=== PATIENT | female | born 1950 | race Caucasian/White ===

== ENCOUNTER 2023-12-21 06:15 | Day surgery (SDC) | payer OTHER, SELFPAY ==
[2023-12-18 09:01] LABS: Urine Albumin Negative (Neg - Trace); Urine Bilirubin Negative (Negative); Urine Character Clear (Clear); Urine Color Yellow; Urine Glucose Negative (Negative); Urine Ketone Negative (Negative); Urine Leukocyte 2+ (Negative); Urine Nitrite Negative (Negative); Urine Occult Blood Negative (Negative); Urine Urobilinogen Negative (Neg - 1+); Urine pH 6.5 (5.0-9.0)
[2023-12-18 09:04] LABS: % Basophils 0.7 % (0-2); % Eosinophils 4.9 % (0-6); % Immature Granulocytes 0.5 % (0-0.5); % Lymphocytes 39.2 % (20.5-51.1); % Monocytes 10.2 % (1.7-9.3); % Neutrophils 44.5 % (42.2-75.2); Absolute Eosinophils 0.2 10^3/uL (0-0.7); Absolute Lymphocytes 1.6 10^3/uL (1.2-3.4); Absolute Monocytes 0.4 10^3/uL (0.1-0.6); Absolute Neutrophils 1.8 10^3/uL (1.4-6.5); Hematocrit 40.1 % (37.0-47.0); Hemoglobin 12.9 g/dL (12.0-16.0); Mean Corp Hgb Conc. 32.2 g/dL (33.0-37.0); Mean Corpuscular Hgb 29.3 pg (27.0-31.0); Mean Corpuscular Volume 91.1 fL (81.0-99.0); Mean Platelet Volume 10.7 fL (7.4-10.4); Nucleated Red Blood Cells % 0 %; Platelet Count 215 10^3/uL (130-400); Red Cell Dist. Width 13.7 % (11.5-14.5); White Blood Cell Count 4.1 10^3/uL (4.8-10.8)
[2023-12-18 09:13] LABS: Urine Bacteria Moderate (Negative); Urine Red Blood Cell 0-2 /HPF (0-2)
[2023-12-18 09:14] LABS: Urine Hyaline Cast 0-2 /LPF (0-2)
[2023-12-18 09:28] LABS: INR 0.99; PT 12.9 Sec (11.4-14.6)
[2023-12-18 09:30] LABS: APTT 25.1 Sec (23.4-35.0)
[2023-12-18 09:32] LABS: Chloride 99 mmol/L (98-107); Potassium 3.8 mmol/L (3.5-5.1); Sodium 139 mmol/L (135-145)
[2023-12-18 09:48] LABS: Blood Urea Nitrogen 15 mg/dl (7-17); Calcium 8.7 mg/dl (8.4-10.2); Carbon Dioxide 30 mmol/L (22-30); Glucose 91 mg/dl (70-99); eGFR > 60.00
[2023-12-18 14:19] VITALS: BMI 27.9
[2023-12-21 06:22] VITALS: BP 126/62; BMI 27.9
[2023-12-21] MEDS: NORMOSOL-R 1000 IV (06:36)
[2023-12-21 07:06] LABS: Urine Albumin Trace (Neg - Trace); Urine Bilirubin Negative (Negative); Urine Character Clear (Clear); Urine Color Yellow; Urine Glucose Negative (Negative); Urine Ketone Trace (Negative); Urine Leukocyte Trace (Negative); Urine Nitrite Negative (Negative); Urine Occult Blood Negative (Negative); Urine Urobilinogen 1+ (Neg - 1+)
[2023-12-21 07:57] LABS: Urine Amorphous Seen; Urine Mucus Many; Urine Squamous Cell 0-2 /LPF (Few)
[2023-12-21 07:58] LABS: Urine Bacteria Few (Negative); Urine Red Blood Cell 0-2 /HPF (0-2)
[2023-12-21 08:16] VITALS: BP 112/52
[2023-12-21 08:30] VITALS: BP 117/58
[2023-12-21 08:45] VITALS: BP 116/66
[2023-12-21 09:00] VITALS: BP 116/68
== END 2023-12-21 09:10 | disposition home or self-care (01) ==
LOC: SDS 06:15
PROVIDERS: ATTENDING PHYSICIAN Urology; FAMILY PHYSICIAN Family Medicine
DX: N39.41 Urge incontinence (principal); R15.9 Full incontinence of feces
CPT/HCPCS: 64590; 64581; 95972; 36415; 72170; 76000; 80048; 81003; 81015; 85025; 85610; 85730; 87086; C1767; C1778; C1787; L8681

== ENCOUNTER → 2024-02-24 10:24 | Outpatient (REF) | payer OTHER, SELFPAY | LOC: RAD 10:24 | PROVIDERS: ATTENDING PHYSICIAN Physician Assistant; FAMILY PHYSICIAN Family Medicine | DX: M81.0 Age-related osteoporosis without current pathological fracture (principal) | CPT/HCPCS: 72072; 72100; 73560; 73565 ==

== ENCOUNTER → 2024-03-04 15:14 | Outpatient (REF) | payer OTHER, SELFPAY | LOC: RCS 15:14 | PROVIDERS: ATTENDING PHYSICIAN Internal Medicine Critical Care Medicine; FAMILY PHYSICIAN Family Medicine | DX: J44.9 Chronic obstructive pulmonary disease, unspecified (principal) | CPT/HCPCS: 93005 ==

== ENCOUNTER → 2024-03-09 12:26 | Outpatient (REF) | payer OTHER, SELFPAY | LOC: RAD 12:26 | PROVIDERS: ATTENDING PHYSICIAN Internal Medicine Critical Care Medicine | DX: J44.9 Chronic obstructive pulmonary disease, unspecified (principal) | CPT/HCPCS: 71046 ==

== ENCOUNTER 2024-04-05 09:00 | Outpatient (RCR) | payer OTHER, SELFPAY | END 2024-04-05 23:59 | disposition home or self-care (01) | LOC: PURB 09:00 | PROVIDERS: ATTENDING PHYSICIAN Internal Medicine Critical Care Medicine; FAMILY PHYSICIAN Family Medicine | DX: J44.9 Chronic obstructive pulmonary disease, unspecified (principal) | CPT/HCPCS: G0237 ==

== ENCOUNTER 2024-05-10 09:30 | Outpatient (RCR) | payer OTHER, SELFPAY | END 2024-05-10 23:59 | disposition home or self-care (01) | LOC: PURB 09:30 | PROVIDERS: ATTENDING PHYSICIAN Internal Medicine Critical Care Medicine; FAMILY PHYSICIAN Family Medicine | DX: J44.9 Chronic obstructive pulmonary disease, unspecified (principal); Z87.891 Personal history of nicotine dependence | CPT/HCPCS: G0239 ==

== ENCOUNTER 2024-05-12 10:16 | Emergency (ER) | payer OTHER, SELFPAY ==
[2024-05-12 10:17] VITALS: BP 161/91
[2024-05-12 11:00] VITALS: BP 116/63
[2024-05-12 11:12] VITALS: BMI 30.5
[2024-05-12 11:41] LABS: ALT (SGPT) 28 U/L (0-35); AST (SGOT) 23 U/L (14-36); Albumin 3.9 g/dl (3.5-5.0); Alkaline Phosphatase 79 U/L (38-126); Blood Urea Nitrogen 24 mg/dl (7-17); Carbon Dioxide 29 mmol/L (22-30); Chloride 103 mmol/L (98-107); Estimated Creatinine Clearance 74 ml/min; Glucose 96 mg/dl (70-99); Potassium 3.4 mmol/L (3.5-5.1); Sodium 138 mmol/L (135-145); Total Bilirubin 0.6 mg/dl (0.2-1.3); Total Protein 6.3 g/dl (6.3-8.2); eGFR > 60.00
[2024-05-12 11:51] LABS: % Basophils 0.4 % (0-2); % Eosinophils 1.3 % (0-6); % Immature Granulocytes 0.3 % (0-0.5); % Lymphocytes 21.4 % (20.5-51.1); % Monocytes 8.8 % (1.7-9.3); % Neutrophils 67.8 % (42.2-75.2); Absolute Eosinophils 0.1 10^3/uL (0-0.7); Absolute Lymphocytes 1.5 10^3/uL (1.2-3.4); Absolute Monocytes 0.6 10^3/uL (0.1-0.6); Absolute Neutrophils 4.8 10^3/uL (1.4-6.5); Hematocrit 37.4 % (37.0-47.0); Hemoglobin 12.6 g/dL (12.0-16.0); Mean Corp Hgb Conc. 33.7 g/dL (33.0-37.0); Mean Corpuscular Hgb 29.8 pg (27.0-31.0); Mean Corpuscular Volume 88.4 fL (81.0-99.0); Mean Platelet Volume 10.6 fL (7.4-10.4); Nucleated Red Blood Cells % 0 %; Platelet Count 195 10^3/uL (130-400); Red Blood Cell Count 4.23 10^6/uL (4.20-5.40); Red Cell Dist. Width 14.3 % (11.5-14.5); White Blood Cell Count 7.1 10^3/uL (4.8-10.8)
[2024-05-12 12:00] VITALS: BP 114/64
--- NOTE | 2024-05-12 12:38 | ED.GENMED ---
History of Present Illness
General
Chief Complaint: Chest Pain
Source: patient, records and family
Exam Limitations: none
Time Seen by Provider: 05/12/24 10:54
Nursing documentation reviewed up to this point in time: agreed with
History of Present Illness
History of Present Illness:
Patient is a 73-year-old female who presents to the emergency department after feeling like her heart rate was racing this morning. Patient checked her watch at send tachycardia possibly A-fib. Patient did feel lightheaded and off balance.
Patient felt intermittent tightness/pain across her upper abdomen around to the back. Patient states that when she takes deep breath it increases the pain. Patient denies fever or chills. Patient does admit to a nonproductive cough. Patient
states she has had this intermittently in the past few months. Patient typically becomes lightheaded. Patient does feel increased shortness of breath. Patient states her skin and hair have changed. Patient is losing her hair. Weight has stayed
the same. Patient denies any injuries or illnesses.
Past History
Past History
ED Past Medical History: HTN, Psychiatric and Other (Diverticulitis )
ED Past Surgical History: Bowel resection (Sigmoid colon resection January 2010 ) and Other; Negative Cardiac
Social History
Tobacco: Smoker
Alcohol: None
Drug: None
Personal:
Living: with family
Employment: Retired
Family History
Family History: Hypertension
Review of Systems
Review of Systems
All Other Systems: ROS reviewed and negative except as documented in HPI and ROS
Constitutional: Reports weight loss and fatigue; Denies fever or chills
EENT: Reports no symptoms
Respiratory: Reports cough
Cardiac: Reports chest pain and palpitations; Denies diaphoresis or syncope
ABD/GI: Reports abdominal pain; Denies nausea, vomiting, diarrhea, constipated, bloody stools or black stools
: Reports no symptoms
Musculoskeletal: Reports no symptoms
Skin: Reports no symptoms
Neurological: Reports no symptoms
Hematologic/Lymphatic: Reports no symptoms
Phy Exam
Physical Exam
Physical Exam:
Physical Exam
General: No apparent distress, alert and appropriate, well nourished, well hydrated
HENT: Normocephalic, supple with no lymphadenopathy, no thyromegaly
Eyes: Clear sclera, conjuctiva without injection
Heart: Regular rhythm with occasional ectopy and rate. No S3, S4. No murmur. No NVD
Lungs: No respiratory distress, no stridor, lung sounds clear and equal bilaterally, chest wall symmetrical and nontender
Abdomen: Soft, nontender, no organomegaly, no CVA tenderness, BS good
Neuro: Alert and oriented x 3, CN II - XII intact, no motor focality, no cerebellar dysfunction
Skin: no rash
Psychiatric: well kept. interactive and cooperative
Extremities: No edema, cyanosis, tenderness, Good and equal peripheral pulses.
Scores
[id number] Score for Afib Stroke Risk
Age in Years (65=0, 65-74=1, >/=75=2): 65-74
Sex (Female=+1): Female
Congestive Heart Failure History (Yes=+1): No
Hypertension History (Yes=+1): Yes
Stroke/TIA/Thromboembolism History (Yes=+2): No
Vascular Disease History (Yes=+1): No
Diabetes Mellitus (Yes=+1): No
Score: 3
Anticoagulation Recommendations: Recommend anticoagulation (as validated in nonvalvular fib)
Heart Failure Risk
Heart Failure Risk Score: Not Applicable
Heart Score for Chest Pain Patients
STEMI patient?: Not applicable
Withdrawal Assessment of Alcohol
Withdrawal Assessment Completed?: Not applicable
Course
Orders/Labs/Results
Orders:
Orders
05/12/24 10:20
EKG [Electrocardiogram (*1)] Urgent
Reason for Study: Chest Pain
EKG- Treatment ONCE
05/12/24 11:13
IV Insert/Care/Rem.- Treatment PRN
05/12/24 11:17
Complete Blood Count/With Diff Urgent
Comprehensive Metabolic Panel Urgent
TSH Urgent
Comment: ADD ON
05/12/24 12:37
Add On- LAB Urgent
Tests Added?: TSH
Abnormal Lab Results
05/12/24
11:17
MPV 10.6 H fL
(7.4-10.4)
Potassium 3.4 L mmol/L
(3.5-5.1)
BUN 24 H mg/dl
(7-17)
05/12/24 11:17
05/12/24 11:17
Vital Signs
Initial and Last Documented VS:
Initial Vital Signs
Temp Pulse Resp BP Pulse Ox
98.2 F 86 18 161/91 95
05/12/24 10:17 05/12/24 10:17 05/12/24 10:17 05/12/24 10:17 05/12/24 10:17
Last Documented Vital Signs
Temp Pulse Resp BP Pulse Ox
98.2 F 69 18 124/77 95
05/12/24 10:17 05/12/24 14:00 05/12/24 14:00 05/12/24 14:00 05/12/24 14:00
*Radiology
Radiology exam reviewed: other (na)
*Pulse Oximetry
Patient hypoxic: no
*EKG
Interpreted by ED Provider?: Yes
EKG Intrepretation Date: 05/12/24
EKG Intrepretation Time: 12:51
Interpretation: abnormal
Comparison EKG: no changes
Heart Rate: 71
Rate: normal
Rhythm: sinus and PAC's
Loop: normal axis
Interval: normal interval
QRS Pattern: normal QRS
Ischemia: non-specific ST changes
*[employer] Interpretation
Rate: normal
Interpretation: abnormal
Heart Rate: 66
Rhythm: sinus and PAC's
*Critical Care Note
Total Time (30-74mins, 75-104mins- exclusive of procedures): Not Applicable
Update Note
Update Note:
Patient's workup is unremarkable. Patient referred to cardiology. Patient will probably need a Holter, echo and possible stress test and follow-up. Given the patient's respiratory issues we will not use a beta-glenna. Additionally would be good
define the etiology or what the exact rhythm is.
ED Attending Note
-
Portions of this chart may have been created with voice recognition software.� Occasional wrong word or��sound alike� substitutions may have occurred due to the inherent limitations of voice recognition software.
Discharge Plan
Departure
Patient Disposition: Home (Routine Discharge)
Date of Disposition: 05/12/24
Time of Disposition: 14:23
Patient with high blood pressure during this ER visit?: Yes
Condition: Good
Covid-19: Not Applicable
Discharge Problem:
Palpitations
Instructions: Palpitations ED, BLOOD PRESSURE
Prescriptions:
No Action
fluticasone propionate 1 SPRAY spray,suspension
1 spray intranasal PRN PRN (Reason: ALLERGIES)
cetirizine [Zyrtec] 10 mg Tablet
10 mg PO DAILY PRN (Reason: ALLERGIES)
sertraline 100 mg Tablet
100 mg PO DAILY
omeprazole 40 mg Capsule,Delayed Release(Dr/Ec)
40 mg PO DAILY
tramadol 50 mg Tablet
50 mg PO TID PRN (Reason: PAIN)
acetaminophen 500 mg Tablet
500 - 1,000 mg PO Q6H PRN (Reason: PAIN)
Benefiber (guar gum) Packet
2 tbsp PO DAILY
hydrochlorothiazide 25 mg Tablet
25 mg PO DAILY
estradiol [Estrace] 0.01 % (0.1 mg/gram) Cream
1 g VAGINAL .TWICEWEEKLY
albuterol sulfate [ProAir HFA] 90 mcg/actuation Hfa Aerosol Inhaler
1 inh INHALATION Q8H PRN (Reason: COPD)
ezetimibe [Zetia] 10 mg Tablet
10 mg PO HS
rosuvastatin 40 mg Tablet
40 mg PO HS
varenicline 1 mg Tablet
1 mg PO DAILY
Breztri Aerosphere 160-9-4.8 mcg/actuation Hfa Aerosol Inhaler
2 inh INHALATION BID
Gemtesa 75 mg Tablet
75 mg PO DAILY
lorazepam 1 MG tablet
1 mg PO BID PRN (Reason: ANXIETY)
sulfamethoxazole-trimethoprim
1 tab PO BID
Referrals:
Pola Chavez MD [Family Provider] -
Jose R Paz MD [Active] - Call in 1-3 days for appt
Activity Restrictions/Additional Instructions:
Continue present medications and therapy. Follow-up with the referral and your primary care physician. Return if any problems.
Interventions
Interventions:
*Risk Screen - Suicide Last Done: 05/12/24 10:17
*General Assessment Last Done: 05/12/24 10:17
*Neglect/Abuse Screening Last Done: 05/12/24 10:17
*ED COVID-19 Vaccine History Last Done: 05/12/24 10:17
ED- Cardiac Assessment Last Done: 05/12/24 11:40
Discharge Date and Time
Print Language: [id number]
[2024-05-12 12:48] VITALS: BP 143/65
[2024-05-12 13:00] VITALS: BP 123/63
[2024-05-12 14:00] VITALS: BP 124/77
== END 2024-05-12 14:35 | disposition home or self-care (01) ==
LOC: EMR 10:16
PROVIDERS: EMERGENCY PHYSICIAN Emergency Medicine; FAMILY PHYSICIAN Family Medicine
DX: R00.2 Palpitations (principal); I10 Essential (primary) hypertension; F17.200 Nicotine dependence, unspecified, uncomplicated; Z82.49 Family history of ischemic heart disease and other diseases of the circulatory system
CPT/HCPCS: 99283; 80053; 84443; 85025; 93005

== ENCOUNTER 2024-06-14 09:30 | Outpatient (RCR) | payer OTHER, SELFPAY | END 2024-06-15 09:07 | disposition home or self-care (01) | LOC: PURB 09:30 | PROVIDERS: ATTENDING PHYSICIAN Internal Medicine Critical Care Medicine; FAMILY PHYSICIAN Family Medicine | DX: J44.9 Chronic obstructive pulmonary disease, unspecified (principal) | CPT/HCPCS: G0239 ==

== ENCOUNTER 2024-06-30 09:30 | Outpatient (RCR) | payer OTHER, SELFPAY | END 2024-06-30 23:59 | disposition home or self-care (01) | LOC: PURB 09:30 | PROVIDERS: ATTENDING PHYSICIAN Internal Medicine Critical Care Medicine; FAMILY PHYSICIAN Family Medicine | DX: J44.9 Chronic obstructive pulmonary disease, unspecified (principal); Z87.891 Personal history of nicotine dependence | CPT/HCPCS: G0239 ==

== ENCOUNTER → 2024-07-28 15:32 | Outpatient (REF) | payer OTHER, SELFPAY | LOC: RAD 15:32 | PROVIDERS: ATTENDING PHYSICIAN Internal Medicine Critical Care Medicine; FAMILY PHYSICIAN Family Medicine | DX: Z87.891 Personal history of nicotine dependence (principal); R91.1 Solitary pulmonary nodule | CPT/HCPCS: 71271 ==

== ENCOUNTER → 2024-11-30 13:24 | Outpatient (REF) | payer OTHER, SELFPAY | LOC: HWRAD 13:24 | PROVIDERS: ATTENDING PHYSICIAN Internal Medicine Critical Care Medicine; FAMILY PHYSICIAN Family Medicine | DX: R91.8 Other nonspecific abnormal finding of lung field (principal) | CPT/HCPCS: 71250 ==

== ENCOUNTER 2024-12-26 06:03 | Day surgery (SDC) | payer OTHER, SELFPAY ==
[2024-12-19 13:11] VITALS: BMI 27.4
[2024-12-26] VITALS (9 sets, daily range): BP systolic 105–136; BP diastolic 55–72; BMI 27.4
== END 2024-12-26 12:10 | disposition home or self-care (01) ==
LOC: GI 06:03
PROVIDERS: ATTENDING PHYSICIAN Internal Medicine Critical Care Medicine; FAMILY PHYSICIAN Family Medicine
DX: R91.1 Solitary pulmonary nodule (principal); T17.990A Other foreign object in respiratory tract, part unspecified in causing asphyxiation, initial encounter; R06.02 Shortness of breath; W44.8XXA Other foreign body entering into or through a natural orifice, initial encounter; D14.31 Benign neoplasm of right bronchus and lung; J18.9 Pneumonia, unspecified organism
CPT/HCPCS: 31652; 31629; 31628; 31624; 31623; 31627; 31654; 88172; 88173; 88305; 36415; 71045; 76000; 87015; 87070; 87102; 87116; 87205; 88112; 88333; 93005; 94640

== ENCOUNTER → 2025-01-16 08:22 | Outpatient (REF) | payer OTHER, SELFPAY | LOC: PET 08:22 | PROVIDERS: ATTENDING PHYSICIAN Internal Medicine Critical Care Medicine | DX: R91.1 Solitary pulmonary nodule (principal) | CPT/HCPCS: 78815; A9552 ==

== ENCOUNTER 2025-02-06 06:25 | Outpatient (RCR) | payer OTHER, SELFPAY | END 2025-02-06 23:59 | disposition home or self-care (01) | LOC: RPT 06:25 | PROVIDERS: ATTENDING PHYSICIAN Physician Assistant Surgical | DX: Z96.612 Presence of left artificial shoulder joint (principal); Z73.6 Limitation of activities due to disability | CPT/HCPCS: 97162; 97530 ==

== ENCOUNTER 2025-03-13 14:49 | Outpatient (RCR) | payer OTHER, SELFPAY | END 2025-03-13 23:59 | disposition home or self-care (01) | LOC: RPT 14:49 | PROVIDERS: ATTENDING PHYSICIAN Physician Assistant Surgical | DX: Z47.1 Aftercare following joint replacement surgery (principal); Z96.612 Presence of left artificial shoulder joint; Z73.6 Limitation of activities due to disability | CPT/HCPCS: 97010; 97110; 97140 ==

== ENCOUNTER 2025-04-05 14:08 | Outpatient (RCR) | payer OTHER, SELFPAY | END 2025-04-05 23:59 | disposition home or self-care (01) | LOC: RPT 14:08 | PROVIDERS: ATTENDING PHYSICIAN Physician Assistant Surgical | DX: Z47.1 Aftercare following joint replacement surgery (principal); Z73.6 Limitation of activities due to disability; M25.512 Pain in left shoulder; R20.2 Paresthesia of skin; M62.81 Muscle weakness (generalized); W10.9XXD Fall (on) (from) unspecified stairs and steps, subsequent encounter; Z96.612 Presence of left artificial shoulder joint | CPT/HCPCS: 97010; 97110; 97140 ==

== ENCOUNTER → 2025-04-19 13:34 | Outpatient (REF) | payer OTHER, SELFPAY | LOC: RAD 13:34 | PROVIDERS: ATTENDING PHYSICIAN Internal Medicine Critical Care Medicine; FAMILY PHYSICIAN Family Medicine | DX: R91.8 Other nonspecific abnormal finding of lung field (principal) | CPT/HCPCS: 71250 ==

== ENCOUNTER 2025-05-11 14:14 | Outpatient (RCR) | payer OTHER, SELFPAY | END 2025-05-11 23:59 | disposition home or self-care (01) | LOC: RPT 14:14 | PROVIDERS: ATTENDING PHYSICIAN Physician Assistant Surgical | DX: Z47.1 Aftercare following joint replacement surgery (principal); Z73.6 Limitation of activities due to disability; M25.512 Pain in left shoulder; R20.2 Paresthesia of skin; M62.81 Muscle weakness (generalized); Z96.612 Presence of left artificial shoulder joint; W10.9XXD Fall (on) (from) unspecified stairs and steps, subsequent encounter | CPT/HCPCS: 97010; 97110; 97112; 97140 ==

== ENCOUNTER 2025-05-12 07:38 | Outpatient (RCR) | payer OTHER, SELFPAY | END 2025-05-12 23:59 | disposition home or self-care (01) | LOC: ROT 07:38 | PROVIDERS: ATTENDING PHYSICIAN Orthopaedic Surgery | DX: G56.02 Carpal tunnel syndrome, left upper limb (principal); Z73.6 Limitation of activities due to disability | CPT/HCPCS: 97166 ==

== ENCOUNTER 2025-06-08 14:22 | Outpatient (RCR) | payer OTHER, SELFPAY | END 2025-06-08 23:59 | disposition home or self-care (01) | LOC: RPT 14:22 | PROVIDERS: ATTENDING PHYSICIAN Physician Assistant Surgical | DX: Z47.1 Aftercare following joint replacement surgery (principal); Z96.612 Presence of left artificial shoulder joint; Z73.6 Limitation of activities due to disability; M25.512 Pain in left shoulder; R20.2 Paresthesia of skin; M62.81 Muscle weakness (generalized); W10.9XXD Fall (on) (from) unspecified stairs and steps, subsequent encounter | CPT/HCPCS: 97110; 97140 ==

== ENCOUNTER 2025-06-15 14:23 | Outpatient (RCR) | payer OTHER, SELFPAY | END 2025-06-15 23:59 | disposition home or self-care (01) | LOC: RPT 14:23 | PROVIDERS: ATTENDING PHYSICIAN Orthopaedic Surgery | DX: G56.02 Carpal tunnel syndrome, left upper limb (principal); Z73.6 Limitation of activities due to disability | CPT/HCPCS: 97018; 97022; 97110 ==

== ENCOUNTER 2025-06-16 14:58 | Outpatient (RCR) | payer OTHER, SELFPAY | END 2025-06-16 23:59 | disposition home or self-care (01) | LOC: RPT 14:58 | PROVIDERS: ATTENDING PHYSICIAN Orthopaedic Surgery | DX: G56.02 Carpal tunnel syndrome, left upper limb (principal); Z73.6 Limitation of activities due to disability | CPT/HCPCS: 97022; 97110 ==

== ENCOUNTER 2025-06-22 14:20 | Outpatient (RCR) | payer OTHER, SELFPAY | END 2025-06-22 23:59 | disposition home or self-care (01) | LOC: RPT 14:20 | PROVIDERS: ATTENDING PHYSICIAN Physician Assistant Surgical | DX: Z47.1 Aftercare following joint replacement surgery (principal); Z73.6 Limitation of activities due to disability; M25.512 Pain in left shoulder; R20.2 Paresthesia of skin; W10.9XXD Fall (on) (from) unspecified stairs and steps, subsequent encounter; M62.81 Muscle weakness (generalized); Z96.612 Presence of left artificial shoulder joint | CPT/HCPCS: 97010; 97110; 97140 ==

== ENCOUNTER → 2025-09-27 10:12 | Outpatient (REF) | payer OTHER, SELFPAY | LOC: PAVMRI 10:12 | PROVIDERS: ATTENDING PHYSICIAN Orthopaedic Surgery Hand Surgery; FAMILY PHYSICIAN Family Medicine; REFERRING PHYSICIAN Orthopaedic Surgery | DX: M54.12 Radiculopathy, cervical region (principal) | CPT/HCPCS: 72141 ==